=== PATIENT | female | born 1965 | race African-American/Black ===

== ENCOUNTER 2021-04-15 13:49 | Emergency (ER) | payer OTHER ==
[~2021-04-15] VITALS: Ht 165.1 cm; Wt 72.6 kg
[~2021-04-15 13:49] MED LIST: IBUPROFEN100 MG PO
[2021-04-15] MEDS ORDERED: ONDANSETRON ODT4 MG PO (13:59)
== END 2021-04-15 14:17 | disposition home or self-care (01) ==
LOC: ER 13:59
DX: R05.9 Cough, unspecified (principal); R52 Pain, unspecified; R11.0 Nausea; I10 Essential (primary) hypertension
CPT/HCPCS: 99283